=== PATIENT | male | born 1990 | race Caucasian/White ===

== ENCOUNTER → 2019-05-02 10:17 | Outpatient (CLI) | payer OTHER, SELFPAY ==
--- NOTE | 2019-05-02 10:24 | RAD_ITS ---
STUDY: X-RAY - RIGHT FOOT CLINICAL: Injury a few days ago. TECHNIQUE: 3 view(s) of the foot. COMPARISON: None. FINDINGS: Normal talus, calcaneus, and tarsal bones. Normal visualized subtalar, talonavicular, calcaneocuboid, tarsal and tarsometatarsal articulations. There is a minimally displaced oblique fracture of the fifth metatarsal diaphysis. Normal metatarsophalangeal joint of the great toe. Normal tibial and fibular sesamoid bones. Normal interphalangeal joint of the great toe. Normal phalanges of the great toe. Normal second through fifth metatarsophalangeal joints. Normal interphalangeal joints and phalanges of the lesser toes. The soft tissue structures are unremarkable. RAD/Foot min 3 Views IMPRESSION: Fifth metatarsal fracture. Electronically Signed: Evaristo Nelson MD at 11:27 EDT Tel , Service support ,
== END ==
PROVIDERS: Family Provider Family Medicine; PCP Family Medicine; Referring Provider Family Medicine; Visit Provider Family Medicine
DX: S92.351A Displaced fracture of fifth metatarsal bone, right foot, initial encounter for closed fracture (principal); X58.XXXA Exposure to other specified factors, initial encounter
CPT/HCPCS: 73630

== ENCOUNTER → 2019-07-03 09:34 | Outpatient (CLI) | payer OTHER, SELFPAY ==
[2019-07-03 12:45] LABS: Vitamin D,25 Hydroxy 15.6 ng/mL (29.95-100.01)
== END ==
PROVIDERS: Family Provider Family Medicine; PCP Family Medicine; Referring Provider Podiatrist; Visit Provider Podiatrist
DX: E55.9 Vitamin D deficiency, unspecified (principal); S92.353A Displaced fracture of fifth metatarsal bone, unspecified foot, initial encounter for closed fracture
CPT/HCPCS: 36415; 82306

== ENCOUNTER → 2022-02-26 | Outpatient (CLI) | payer OTHER, SELFPAY ==
--- NOTE | 2022-02-26 10:12 | RAD_ITS ---
HISTORY: PAIN. TECHNIQUE: XR Spine Lumbar Comp W/ Bending Min 6 Views. COMPARISON: CT 02/10/2013. FINDINGS: VERTEBRAE: Vertebral body heights preserved. Posterior elements appear intact. ALIGNMENT: Chronic minimal retrolisthesis of L5-S1. Unchanged with flexion and extension maneuver. INTERVERTEBRAL DISCS: Disc spaces maintained. RAD/L/S Spine w Bend Min 6 Vw IMPRESSION: No acute fracture or dislocation identified in the lumbar spine. Chronic minimal retrolisthesis of L5-S1. Electronically Signed: Lori Wade MD at 15:20 EDT ,
== END | disposition home or self-care (01) ==
LOC: MTRAD 10:09
PROVIDERS: PCP Family Medicine; Referring Provider Family Medicine; Visit Provider Family Medicine
DX: M54.50 Low back pain, unspecified (principal)
CPT/HCPCS: 72114

== ENCOUNTER 2022-04-07 13:30 | Outpatient (RCR) | payer OTHER, SELFPAY ==
--- NOTE | 2022-03-09 08:46 | HP.PTEVAL_ITS ---
Patient's Visit Information TAMARA SCHWARTZ is a 31 year old M referred to Physical Therapy by Dr. Ad Daniel MD with a diagnosis of DDD L5/S1 slight retrolithesis. Date of Evaluation: 03/09/22 Physical Therapist: STUART Duncan - Visit Plan Frequency: 2x /Week Duration: 4 Weeks Plan: 2X/ week 4 weeks for neutral spine core stability progressing from supine to standing, postural exercises, HS and hip flexor stretching, body mechanics for heavy lifting (job duties lifting furniture), with HEP (pt has a home gym) with modalities as needed. HEP: Green HS stretch in supine (some pain on the R side) - Subjective Pt was recomm to come to PT a few Wed ago. He has a sore back on the lower L side of his back. 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 He got prednisone and muscle relaxors and done with those. He did X-rays and showed slight DDD of L5-S1. He comes from a long hx of DDD of the spine. For the past year and a half and he went on a 3 mile run and that helps to loosen up his back. As he sits here he feels a low dull ache. He is going back to school this week. He has a full gym at home and runs 3 miles in the morning and he does some upper body work. Pt has no leg symptoms. He has had numbness in his L quad 2 weeks ago but that has subsided. 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 He has had back pain 21-29 at least 5 times where he gets this. - Pain L sided back pain Pain Intensity (Out of 10): 1 - Objective Gait: Walks more on his toes with a normal gait pattern. Trunk AROM: Flexion 25%, Ext 50%, SB B 75% ( increase pain both directions), Rot B 75%. LE MMT: Hip flex R 19.7# and L 17.8#. R knee ext 23.3# and L 19.3#. L knee flex 15# and L knee flex 13.9#. R hip abd 14.1 and L 15.9. Slump test: + on the R side. SLR test: + on the R for R sided back pain, and -SLR on the L. B Hamstring tightness. Patella DTR's: 2+/3. Lying Prone and ABDIEL...he can feel tightness on the L side. Prone press up with pt sag.... just tightness. - Balance/Special Test Scores Oswestry Low Back Score: 1 - Goals Goal 1:: I HEP...lifting routine at home in his home gym Goal Time Frame: 4-6 Weeks Goal 2:: Be able to lift at his job and not have back pain with proper techniques Goal Time Frame: 4-6 Weeks Goal 3:: Be able to wake up without back soreness. Goal Time Frame: 4-6 Weeks Goal 4:: Increase Hamstring flexibility to be able to do a 90/90 test without pain and decrease + SLR sign on the R. Goal Time Frame: 4-6 Weeks - Rehabilitation Potential Rehabilitation Potential: Good - Anticipated Interventions Patient/Client Instruction: Educate patient on: Condition, Plan of Care For the Purpose of:: To decrease pain, To increase ROM, To improve nutrient delivery to tissue, To improve muscle performance and motor function, To improve ability to perform ADL's, To increase tolerance to activity/condition/position, To improve performance and independence with ADL's, To improve ability of physical actions for home/community/work/leisure, To improve health of tissue, To decrease soft tissue restriction, To increase flexibility/ROM, To improve en durance Therapeutic Exercise to Include: Strength training, Body mechanics, Postural training, Flexibilty training, Neuromotor development, Active ROM, Dynamic Lumbar Stabilization, Su Exercises, Scapular Strength/Stabilization For the Purpose of:: To decrease pain, To increase ROM, To improve nutrient delivery to tissue, To increase oxygenation perfusion, To improve muscle performance and motor function, To increase tolerance to activity/condition/position, To improve health of tissue, To increase flexibility/ROM, To improve balance Manual Therapy Techniques to Include: Mobilization, Passive ROM, Soft tissue mobilization For the Purpose of:: To decrease pain, To increase ROM, To improve nutrient delivery to tissue, To improve muscle performance and motor function, To improve ability to perform ADL's, To increase tolerance to activity/condition/position, To improve performance and independence with ADL's, To improve ability of physical actions for home/community/work/leisure, To improve gait and locomotor functions, To improve health of tissue, To decrease soft tissue restriction, To increase flexibility/ROM, To improve endurance IF ES: Yes Cryotherapy (ice pack, ice massage): Yes Thermo therapy (hot pack): Yes Ultrasound (thermal/non thermal): Yes For the Purpose of:: To decrease pain, To decrease swelling/inflammation, To increase ROM, To improve nutrient delivery to tissue Thank you for the opportunity to evaluate your patient. For Medicare and Medicare HMO plans, please review the plan of care and approve it. It will need to be FAXED BACK to us at [phone] for Medicare purposes. For Medicare only, by signing this I certify the plan of care. Please let me know if there are questions or concerns regarding this plan of care. Physician Signature: Date:
--- NOTE | 2022-04-07 13:45 | HP.PTDCSUM_ITS ---
It has been my pleasure to treat TAMARA SCHWARTZ referred by Dr. Ad Daniel MD, with the diagnosis of DDD L5/S1 slight retrolithesis for a total of 9 visit(s). Discharge Date: 04/07/22 Please see the following information for a summary of their discharge status. Subjective: Pt is off the pain meds. He is doing the stretches at home pranay smith on his cardio days. He feels a slight stiffness when he sits but it is not a painful pinch. He is able to sit in class. He is doing the inchworms and fire hydrants but he really feels like a whole new person. L sided back pain Pain Intensity (Out of 10): 0 % Improvement: 99 Objective/Function: Pt still has a little buttock pain with SLR on the R but it is very minimal. He has the same pain with a seated and supine piriformis stretch and will try doing those stretches twice a day for 2 weeks and see if that helps his remaining buttock pain Goal 1:: I HEP...lifting routine at home in his home gym Goal Progress: Goal Met Goal 2:: Be able to lift at his job and not have back pain with proper techniques Goal Progress: Goal Met Goal 3:: Be able to wake up without back soreness. Goal Progress: Goal Met Goal 4:: Increase Hamstring flexibility to be able to do a 90/90 test without pain and decrease + SLR sign on the R. Goal Progress: Progressing Plan: DC PT to HEP Discharge Comments: DC PT to HEP If there are questions or concerns regarding this patient's physical therapy, please feel free to call me at [phone]. Thank you for the referral of this patient. Sincerely, Charlene Noel, MPT Balance/Gait/Functional tests - Balance/Special Test Scores Oswestry Low Back Score: 0
== END 2022-04-07 19:00 | disposition home or self-care (01) ==
LOC: PT 13:30
PROVIDERS: PCP Family Medicine; Referring Provider Family Medicine; Visit Provider Family Medicine
DX: M51.37 Other intervertebral disc degeneration, lumbosacral region (principal)
CPT/HCPCS: 97014; 97110; 97161; 97530; G0283